=== PATIENT | male | born 1980 ===

== ENCOUNTER 2021-08-05 18:00 | Emergency (ER) | payer SELFPAY ==
[2021-08-05 19:00] VITALS: BP 149/93
[2021-08-05] MEDS ORDERED: HYDROcodone/ACETAMINOPHEN 5-325 MG TAB PO STA (21:33)
--- NOTE | 2021-08-05 21:57 | XRay Report ---
XR hand 3+V LT INDICATION / CLINICAL INFORMATION: hand pain crush injury. COMPARISON: None available. FINDINGS: BONES/JOINT(S): There is a nondisplaced fracture through the mid scaphoid. No other fracture is seen. SOFT TISSUES: No significant abnormality. ADDITIONAL FINDINGS: None. Signer Name: Arben Vasquez MD Signed: 08/05/2021 9:53 PM Workstation Name: [id number]
--- NOTE | 2021-08-05 23:11 | Emergency Department Report ---
ED Upper Extremity Inj HPI - General Chief Complaint: Extremity Injury, Upper Stated Complaint: LEFT HAND SWELLING Time Seen by Provider: 08/05/21 21:25 Source: patient Mode of arrival: Ambulatory Limitations: Language Barrier - History of Present Illness Initial Comments: 41-year-old male with asthma department complaining of working on a ladder that fell down onto his left hand yesterday in a crush-like fashion resulting in pain swelling with decreased range of motion due to discomfort. Pain is dull and throbbing. MD Complaint: Injury to:: left, wrist, hand -: Sudden Other Extremity Injury: Hand: Left, Wrist: Left Handedness: right Place: work Worsens With: movement of extremity Context: direct blow, crush, injury Associated Symptoms: denies: weakness, numbness, suspects foreign body, nausea/vomiting, heard/felt popping sensat - Related Data Previous Rx's Medication Instructions Recorded Last Taken Type Acetaminophen/Codeine [Tylenol 1 tab PO Q6H PRN #14 tab 08/05/21 Unknown Rx /Codeine # 3 tab] Allergies Allergy/AdvReac Type Severity Reaction Status Date / Time No Known Allergies Allergy Unverified 08/05/21 18:56 ED Review of Systems ROS: Stated complaint: LEFT HAND SWELLING Other details as noted in HPI Comment: All other systems reviewed and negative ED Past Medical Hx - Past Medical History Previous Medical History?: No - Surgical History Additional Surgical History: HEAD - Medications Home Medications: Home Medications Medication Instructions Recorded Confirmed Last Taken Type Acetaminophen/Codeine [Tylenol 1 tab PO Q6H PRN #14 tab 08/05/21 Unknown Rx /Codeine # 3 tab] ED Physical Exam - General Limitations: Language Barrier General appearance: alert, in no apparent distress - Head Head exam: Present: atraumatic, normocephalic - Eye Eye exam: Present: normal appearance - ENT ENT exam: Present: mucous membranes moist - Neck Neck exam: Present: normal inspection - Respiratory Respiratory exam: Present: normal lung sounds bilaterally. Absent: respiratory distress - Cardiovascular Cardiovascular Exam: Present: regular rate, normal rhythm. Absent: systolic murmur, diastolic murmur, rubs, gallop - GI/Abdominal GI/Abdominal exam: Present: soft, normal bowel sounds - Rectal Rectal exam: Present: deferred - Extremities Exam Extremities exam: Present: normal inspection, tenderness, normal capillary refill, joint swelling - Expanded Upper Extremity Exam Left Hand Wrist exam: Present: tenderness, swelling, ecchymosis. Absent: deformity, crepidus, dislocation, erythema, amputation, nail avulsion, subungual hematoma Vascular: Absent: normal capillary refill, pulse deficit radial art, radial pulse, brachial pulse - Back Exam Back exam: Present: normal inspection. Absent: CVA tenderness (R), CVA tenderness (L) - Neurological Exam Neurological exam: Present: alert, oriented X3, CN II-XII intact, normal gait - Psychiatric Psychiatric exam: Present: normal affect, normal mood - Skin Skin exam: Present: warm, dry, intact, normal color. Absent: rash ED Course Vital Signs 08/05/21 08/05/21 18:52 22:11 Temperature 98.7 F Pulse Rate 72 Respiratory 17 18 Rate Blood Pressure 149/93 O2 Sat by Pulse 97 Oximetry ED Medical Decision Making - Radiology Data Radiology results: report reviewed [facility] [address] [place] [address] XRay Report Signed Patient: LOLY CHAMPAGNE MR#: [id number] : 1980 Acct:[id number] Age/Sex: 41 / M ADM Date: 08/05/21 Loc: ED Attending Dr: Ordering Physician: ROZINA ALVES Date of Service: 08/05/21 Procedure(s): XR hand 3+V LT Accession Number(s): [id number] cc: ROZINA ALVES Fluoro Time In Minutes: XR hand 3+V LT INDICATION / CLINICAL INFORMATION: hand pain crush injury. COMPARISON: None available. FINDINGS: BONES/JOINT(S): There is a nondisplaced fracture through the mid scaphoid. No other fracture is seen. SOFT TISSUES: No significant abnormality. ADDITIONAL FINDINGS: None. Signer Name: Arben Vasquez MD Signed: 08/05/2021 9:53 PM Workstation Name: [id number] Transcribed By: DAGO Dictated By: Arben Vasquez MD Electronically Authenticated By: Arben Vasquez MD Signed Date/Time: 08/05/212152 DD/ 52 TD/TT: - Medical Decision Making 41-year-old male status post crush injury to the left hand resulting in a scaphoid fracture was placed in a thumb spica splint and sling for comfort and analgesic medications as well. Treatment was discussed and the need to follow- up with a orthopedic physician for definitive treatment of his condition. Critical care attestation.: If time is entered above; I have spent that time in minutes in the direct care of this critically ill patient, excluding procedure time. ED Disposition Clinical Impression: Scaphoid fracture, wrist, closed Disposition: HOME / SELF CARE / HOMELESS Is pt being admited?: No Does the pt Need Aspirin: No Condition: Stable Instructions: Cast or Splint Care, Adult, [id number], Wrist Splint, Adult, Cast or Splint Care, Adult, Scaphoid Fracture Prescriptions: Acetaminophen/Codeine [Tylenol /Codeine # 3 tab] 1 tab PO Q6H PRN #14 tab PRN Reason: wrist pain Referrals: [facility] [Provider Group] - 3-5 Days PRIMARY CARE, [Primary Care Provider] - 3-5 Days ROSIO PARSON MD [Staff Physician] - 3-5 Days Print Language: FAROESE
== END 2021-08-05 23:30 | disposition home or self-care (01) ==
LOC: ED 18:00
DX: S62.002A Unspecified fracture of navicular [scaphoid] bone of left wrist, initial encounter for closed fracture (principal); Z79.899 Other long term (current) drug therapy; W11.XXXA Fall on and from ladder, initial encounter; Y93.89 Activity, other specified; Y92.89 Other specified places as the place of occurrence of the external cause; Y99.8 Other external cause status
CPT/HCPCS: 99283; 99284